=== PATIENT | male | born 1940 | race Caucasian/White ===

== ENCOUNTER 2022-07-09 14:39 | Emergency (ER) | payer OTHER ==
[~2022-07-09] VITALS: Ht 182.8 cm; Wt 89.8 kg
[~2022-07-09 14:39] MED LIST: DARVOCET N 1001 TAB PO
[2022-07-09 14:45] VITALS: BP 111/78
[2022-07-09 15:47] LABS: ALKALINE PHOSPHATASE 57 U/L (46-116); BUN 9 mg/dl (9-23); CHLORIDE 103 mmol/L (98-107); POTASSIUM 4.2 mmol/L (3.4-5.1); SGPT/ALT 14 U/L (10-49); TOTAL PROTEIN 6.2 gm/dL (6.0-8.0)
[2022-07-09 16:53] LABS: BASO % 0.4 % (0.0-1.0); EOS # 0.1 10*3/uL (0.0-0.4); EOS % 1.4 % (1.0-4.0); HEMATOCRIT 43.8 % (42.0-52.0); LYMPH # 2.1 10*3/uL (1.3-4.4); LYMPH % 29.7 % (27.0-41.0); MEAN CELL VOLUME 94.6 fl (80.0-94.0); MEAN CORPUSCULAR HGB CONC 33.8 g/dl (33.0-37.0); MEAN PLATELET VOLUME 8.8 fl (9.6-12.3); MONO # 0.5 10*3/uL (0.1-1.0); MONO % 7.3 % (3.0-9.0); NEUT # 4.3 10*3/uL (2.3-7.9); NEUT % 61.1 % (47.0-73.0); PLATELET COUNT AUTOMATED 130 10*3/uL (130-400); RED BLOOD COUNT 4.63 10*6/uL (4.50-5.90); RED CELL DISTRI WIDTH 13.4 % (0-14.5); WHITE BLOOD COUNT 7.1 10*3/uL (4.8-10.8)
[2022-07-09] MEDS ORDERED: OMEPRAZOLE40 MG PO (17:36)
== END 2022-07-09 18:30 | disposition home or self-care (01) ==
LOC: ED 14:39
PROVIDERS: Internal Medicine
DX: K21.9 Gastro-esophageal reflux disease without esophagitis (principal); I10 Essential (primary) hypertension; E11.9 Type 2 diabetes mellitus without complications; I25.10 Atherosclerotic heart disease of native coronary artery without angina pectoris; R07.9 Chest pain, unspecified; Z88.0 Allergy status to penicillin; Z88.6 Allergy status to analgesic agent